=== PATIENT | male | born 1990 | race Two or more races ===

== ENCOUNTER 2019-04-24 07:25 | Emergency (ER) | payer OTHER ==
[~2019-04-24] VITALS: Ht 177.8 cm; Wt 83.9 kg
== END 2019-04-24 16:49 | disposition home or self-care (01) ==
LOC: ER 07:25
DX: S01.82XA Laceration with foreign body of other part of head, initial encounter (principal); W18.09XA Striking against other object with subsequent fall, initial encounter; Y93.89 Activity, other specified; Y92.89 Other specified places as the place of occurrence of the external cause; Y99.8 Other external cause status